=== PATIENT | male | born 1990 | race Two or more races ===

== ENCOUNTER → 2025-02-19 | Outpatient (CLI) | payer MEDICAID, SELFPAY ==
--- NOTE | 2025-02-19 10:15 | XR_ITS ---
Examination: Abdomen sonogram, complete Date and time of exam: February 19, 2025 1342 hours INDICATIONS: Elevated liver enzymes on laboratory examination today. Technique: Multiple real-time grayscale transabdominal sonographic images of the abdomen have been obtained. Findings: Normal gallbladder Normal common bile duct 0.4 cm Pancreatic head 3.2 cm Liver 17.8 cm fatty infiltration Normal hepatopedal portal venous flow Patent IVC Right kidney 10.7 x 6.0 x 5.8 cm cortex 1.7 cm Left kidney 11.6 cm x 7.1 cm x 6.1 cm renal cortex 1.9 cm Mild right moderate left renal parenchymal scar formation Spleen 12.1 cm IMPRESSION: Normal gallbladder Mild hepatomegaly fatty liver
== END | disposition home or self-care (01) ==
PROVIDERS: Referring Provider Nurse Practitioner Family; Visit Provider Nurse Practitioner Family
DX: K76.0 Fatty (change of) liver, not elsewhere classified (principal)
CPT/HCPCS: 76700